=== PATIENT | female | born 1950 | race Caucasian/White ===

== ENCOUNTER → 2017-12-27 | Outpatient (CLI) | payer OTHER, MEDICARE | LOC: BRMIMAGING 12:34 | PROVIDERS: ATTEND Nurse Practitioner | DX: Z12.31 Encounter for screening mammogram for malignant neoplasm of breast (principal); Z13.820 Encounter for screening for osteoporosis; M81.0 Age-related osteoporosis without current pathological fracture; Z78.0 Asymptomatic menopausal state ==

== ENCOUNTER → 2018-05-30 | Outpatient (CLI) | payer OTHER, MEDICARE | LOC: EMCIMAGING 12:32 | PROVIDERS: ATTEND Emergency Medicine | DX: R10.31 Right lower quadrant pain (principal); R93.3 Abnormal findings on diagnostic imaging of other parts of digestive tract; K80.20 Calculus of gallbladder without cholecystitis without obstruction | CPT/HCPCS: 74177-PN ==